=== PATIENT | male | born 1965 | race Caucasian/White ===

== ENCOUNTER 2016-02-19 17:14 | Emergency (ER) | payer OTHER ==
[~2016-02-19] VITALS: Ht 172.7 cm; Wt 68.0 kg
[~2016-02-19 17:14] MED LIST: COREG6.25 MG PO; DILAUDID 2 MG TA2 MG PO; DILAUDID2 MG; HYDROCODONE-AP1 EAC6 PO; LISINOPRIL20 MG PO; METHADONE HCL5 MG PO; MS CONTIN 30 MG30 M1; NAPROSYN500 MG PO; NEURONTIN 300300 M1 PO; NEXIUM20 MG PO; NORCO 5-325 TA1 EACH PO; ORPHENADRINE C100 M2 PO; PERCOCET PO; PHENERGAN 25 MG25 M1 PO; ROBAXIN 750 MG750 M1 PO; TRAMADOL 50 MG50 MG PO; ZOFRAN ODT4 MG DISSOLVE
[2016-02-19 18:31] LABS: HEMOGLOBIN 13.9 gm/dL (14.0-18.0); MCH 36.1 pg (26.0-34.0); MCHC 34.7 % (28.0-37.0); MCV 103.9 fL (80.0-100.0); PLATELET COUNT 103 thou/uL (150-400); RBC 3.85 mil/uL (4.50-6.00); RDW 14.2 % (10.5-14.5); WBC 4.3 thou/uL (4.0-11.0)
[2016-02-19 18:33] LABS: CALCIUM 8.8 mg/dL (8.5-10.1); CREATININE 0.8 mg/dL (0.6-1.3); POTASSIUM 4.1 mmol/L (3.5-5.1)
[2016-02-19 18:39] LABS: MANUAL DIFF YES
[2016-02-19 18:40] LABS: ALBUMIN 4.2 g/dL (3.4-5.0); SALICYLATE 3.6 mg/dL (2.8-20.0); TOTAL BILIRUBIN 0.3 mg/dL (<0.1-1.0); TOTAL PROTEIN 7.8 g/dL (6.4-8.2)
[2016-02-19 18:54] LABS: ABSOLUTE NEUTROPHILS 1.2 thou/uL (1.4-8.2); TOTAL CELL COUNT 100
[2016-02-19 19:51] LABS: AMP/METHAMP Negative (Negative); BARBITURATES Negative (Negative); BENZODIAZEPINES Negative (Negative); COCAINE Negative (Negative); METHADONE Negative (Negative); OPIATES POSITIVE (Negative); PCP Negative (Negative); THC Negative (Negative)
[2016-02-19] MEDS ORDERED: CHLORDIAZEPOXID25 M1 PO (21:59)
[2016-02-19] MEDS ORDERED: PHENERGAN 25 MG25 M1 PO (21:59)
== END 2016-02-20 03:54 ==
LOC: ER 17:14
PROVIDERS: Emergency Medicine
DX: F10.129 Alcohol abuse with intoxication, unspecified (principal); I10 Essential (primary) hypertension; F17.210 Nicotine dependence, cigarettes, uncomplicated

== ENCOUNTER 2016-02-25 08:51 | Emergency (ER) | payer BC, OTHER ==
[~2016-02-25] VITALS: Ht 175.3 cm; Wt 63.5 kg
[~2016-02-25 08:51] MED LIST changes: +CHLORDIAZEPOXID25 M1 PO
[2016-02-25] MEDS ORDERED: NEURONTIN 300300 M1 PO (09:42)
[2016-02-25 09:53] LABS: ABSOLUTE NEUTROPHILS 1.8 thou/uL (1.4-8.2); BASOPHILS 0.8 % (0.0-2.0); EOSINOPHILS 3.7 % (0.0-3.0); HEMATOCRIT 38.8 % (42.0-52.0); HEMOGLOBIN 13.2 gm/dL (14.0-18.0); LYMPHOCYTES 43.4 % (24.0-44.0); MCH 35.8 pg (26.0-34.0); MCHC 34.2 % (28.0-37.0); MCV 104.8 fL (80.0-100.0); MONOCYTES 11.5 % (1.0-8.0); PLATELET COUNT 115 thou/uL (150-400); POLYS 40.6 % (36.0-66.0); RDW 13.8 % (10.5-14.5); WBC 4.5 thou/uL (4.0-11.0)
[2016-02-25 10:00] LABS: MANUAL DIFF NO
[2016-02-25 10:01] LABS: ANION GAP 12 mmol/L (7-16); BUN 13 mg/dL (7-18); CALCIUM 9.1 mg/dL (8.5-10.1); CHLORIDE 106 mmol/L (98-107); CO2 27 mmol/L (21-32); CREATININE 0.7 mg/dL (0.6-1.3); GLUCOSE 97 mg/dL (70-99); POTASSIUM 4.2 mmol/L (3.5-5.1); SODIUM 145 mmol/L (136-145)
[2016-02-25 10:07] LABS: ACETAMINOPHEN < 2 ug/mL (10-30); ALKALINE PHOSPHATASE 103 U/L (46-116); SALICYLATE 3.1 mg/dL (2.8-20.0); SGOT 383 U/L (15-37); SGPT 219 U/L (30-65); TOTAL BILIRUBIN 0.2 mg/dL (<0.1-1.0); TOTAL PROTEIN 7.4 g/dL (6.4-8.2)
[2016-02-25 10:12] LABS: AMP/METHAMP Negative (Negative); BARBITURATES Negative (Negative); BENZODIAZEPINES POSITIVE (Negative); COCAINE Negative (Negative); METHADONE Negative (Negative); OPIATES Negative (Negative); PCP Negative (Negative); THC Negative (Negative)
== END 2016-02-25 21:13 | disposition short-term general hospital (02) ==
LOC: ER 08:51
PROVIDERS: Nurse Practitioner Family
DX: R45.851 Suicidal ideations (principal); I10 Essential (primary) hypertension; G60.0 Hereditary motor and sensory neuropathy; F17.210 Nicotine dependence, cigarettes, uncomplicated; F12.21 Cannabis dependence, in remission